=== PATIENT | male | born 1990 | race African-American/Black ===

== ENCOUNTER 2019-04-24 16:33 | Emergency (ER) | payer SELFPAY ==
[~2019-04-24] VITALS: Ht 170.2 cm; Wt 61.0 kg
[2019-04-24 16:56] VITALS: BP 124/71
[2019-04-24] MEDS ORDERED: LORAZEPAM 1MG TABLET PO ONE (18:15)
== END 2019-04-24 18:32 | disposition left against medical advice (07) ==
LOC: ER 16:33
DX: R44.3 Hallucinations, unspecified (principal); F15.10 Other stimulant abuse, uncomplicated; F17.290 Nicotine dependence, other tobacco product, uncomplicated; F14.10 Cocaine abuse, uncomplicated; F12.10 Cannabis abuse, uncomplicated; J45.909 Unspecified asthma, uncomplicated
CPT/HCPCS: 99281

== ENCOUNTER 2020-02-07 07:34 | Emergency (ER) | payer MEDICAID ==
[~2020-02-07] VITALS: Ht 177.8 cm; Wt 77.0 kg
[2020-02-07 07:36] VITALS: BP 136/85
[2020-02-07] MEDS ORDERED: PREDNISONE 20MG TABLET PO STA (09:27)
[2020-02-07] MEDS ORDERED: IPRATROPIUM BROMIDE (0.02%) 0.5MG/2.5ML NEB HHN STA (09:27)
[2020-02-07] MEDS ORDERED: ALBUTEROL (0.083%) 2.5MG/3ML NEB HHN STA (09:27)
== END 2020-02-07 10:45 | disposition home or self-care (01) ==
LOC: ER 08:06
DX: J45.901 Unspecified asthma with (acute) exacerbation (principal); K21.9 Gastro-esophageal reflux disease without esophagitis; F14.10 Cocaine abuse, uncomplicated; F12.10 Cannabis abuse, uncomplicated; F15.10 Other stimulant abuse, uncomplicated
CPT/HCPCS: 71045; 93005; 94640; 99283; J7512; Z7610

== ENCOUNTER 2025-01-05 21:20 | Emergency (ER) | payer MEDICAID ==
[~2025-01-05] VITALS: Ht 177.8 cm; Wt 80.0 kg
[~2025-01-05 21:20] MED LIST: ALBU90AE INH; AMLO2.5T45 PO; HYDR25TA78 PO; METH4TAB95 MT; MONT-46 PO
[2025-01-05] MEDS ORDERED: CEFTRIAXONE SODIUM 500MG VIAL IM ONE (23:15)
[2025-01-05] MEDS ORDERED: METHYLPREDNISOLONE 40MG/ML INJ IV ONE (23:15)
[2025-01-06 00:13] VITALS: PULSE 66; RESP 52; O2SAT 96
[2025-01-06] MEDS: IPRATROPIUM/ALBUTEROL 0.5-3(2.5)MG/3ML NEB HHN ONE (00:13)
[2025-01-06] MEDS: METHYLPREDNISOLONE SOD SUCC 125MG/2ML (ACT-O-VIAL) IV NR (01:07)
[2025-01-06 01:36] LABS: CLARITY URINE CLEAR (CLEAR); COLOR URINE YELLOW (YELLOW); GLUCOSE URINE NEGATIVE (NEGATIVE); KETONES URINE TRACE (NEGATIVE); LEUKOCYTE ESTERASE URINE NEGATIVE (NEGATIVE); NITRITE URINE NEGATIVE (NEGATIVE); OCCULT BLOOD URINE NEGATIVE (NEGATIVE); PH URINE 6.0 (4.5-8.0); PROTEIN URINE NEGATIVE (NEGATIVE); SPECIFIC GRAVITY URINE 1.024 (1.005-1.030); UROBILINOGEN URINE 1.0 E.U./dL (0.2-1.0)
[2025-01-06] MEDS ORDERED: PRED5TAB48 MT (01:40)
[2025-01-06] MEDS ORDERED: DOXY100T2 MT (01:40)
[2025-01-06 02:27] VITALS: BP 151/99; PULSE 61; RESP 14; TEMP 36.8; O2SAT 97
[2025-01-06] MEDS: CEFTRIAXONE SODIUM 500MG VIAL IM SCH (02:28)
== END 2025-01-06 02:31 | disposition home or self-care (01) ==
LOC: ER 21:20
DX: J45.901 Unspecified asthma with (acute) exacerbation (principal); Z11.3 Encounter for screening for infections with a predominantly sexual mode of transmission; F10.90 Alcohol use, unspecified, uncomplicated; F12.90 Cannabis use, unspecified, uncomplicated; F14.90 Cocaine use, unspecified, uncomplicated; F19.90 Other psychoactive substance use, unspecified, uncomplicated; Y90.9 Presence of alcohol in blood, level not specified
CPT/HCPCS: 81003; 36415; 71045; 99285; 94640; 96372; 96374; J0696; J2919; Z7610 ×4; 94070; 94664; 98960; 99284